=== PATIENT | female | born 1965 | race African-American/Black ===

== ENCOUNTER 2018-08-30 16:14 | Emergency (ER) | payer OTHER ==
[~2018-08-30] VITALS: Ht 172.7 cm; Wt 124.3 kg
[2018-08-30] MEDS ORDERED: LISINOPRIL20 MG (17:03)
[2018-08-30] MEDS ORDERED: XARELTO20 MG (17:04)
[2018-08-30] MEDS ORDERED: DIGOX250 MCG (17:04)
[2018-08-30] MEDS ORDERED: DILTIAZEM 24HR240 MG (17:04)
== END 2018-08-30 21:46 | disposition home or self-care (01) ==
LOC: ER 16:14 → EDBD 16:18 → ER 16:18
DX: M25.562 Pain in left knee (principal)

== ENCOUNTER 2023-01-20 05:02 | Inpatient (IN) | payer OTHER ==
[~2023-01-20] VITALS: Ht 172.7 cm; Wt 108.0 kg
[~2023-01-20 05:02] MED LIST: DIGOX250 MCG; DILTIAZEM 24HR240 MG; LISINOPRIL20 MG; XARELTO20 MG
[2023-01-20] MEDS ORDERED: LANOXIN125 MCG PO (05:21)
[2023-01-20] MEDS ORDERED: HYDRALAZINE HCL50 MG PO (05:21)
== END 2023-01-28 17:05 | disposition home or self-care (01) | DRG 280 ==
LOC: ER 05:02 → MEDJ 18:32
PROVIDERS: ADMIT Internal Medicine; ATTEND Internal Medicine
PROC: 4A12X4Z Monitoring of Cardiac Electrical Activity, External Approach (ICD-10-PCS; principal; 2023-01-20)
PROC: BW24ZZZ Computerized Tomography (CT Scan) of Chest and Abdomen (ICD-10-PCS; 2023-01-20)
PROC: B24BZZZ Ultrasonography of Heart with Aorta (ICD-10-PCS; 2023-01-20)
DX: I13.0 Hypertensive heart and chronic kidney disease with heart failure and stage 1 through stage 4 chronic kidney disease, or unspecified chronic kidney disease (principal); I21.4 Non-ST elevation (NSTEMI) myocardial infarction; I50.23 Acute on chronic systolic (congestive) heart failure; I48.20 Chronic atrial fibrillation, unspecified; N17.9 Acute kidney failure, unspecified; N18.30 Chronic kidney disease, stage 3 unspecified; F17.200 Nicotine dependence, unspecified, uncomplicated; Z20.822 Contact with and (suspected) exposure to COVID-19